=== PATIENT | male | born 1980 | race Two or more races ===

== ENCOUNTER 2024-06-26 06:29 | Emergency (ER) | payer OTHER ==
[~2024-06-26] VITALS: Ht 182.9 cm; Wt 98.4 kg
[~2024-06-26 06:29] MED LIST: NAPROXEN500 MG PO; ORPHENADRINE C100 MG PO; PERCOCET 10-321 EACH; RELAPHEN; TESSALON PERLE100 M1
[2024-06-26 08:41] LABS: HEMOGLOBIN 15.7 g/dL (13-16.00); MEAN CELL VOLUME 90.3 fL (80.0-100.00); MEAN CORPUSCULAR HEMOGLOBIN 30.8 pg (27.00-32.0); MEAN CORPUSCULAR HGB CONC 34.1 g/dl (32.0-36.0); PLATELET COUNT 163 K/uL (150-450); RED CELL DISTRIBUTION WIDTH 13.2 % (11.5-14.5)
[2024-06-26 09:20] LABS: PH,URINE 7.5 (5.0-8.0); URINE APPEARANCE Clear; URINE BILIRRUBIN Negative (NEGATIVE); URINE BLOOD Small; URINE COLOR Yellow; URINE GLUCOSE Negative (NEGATIVE); URINE KETONE Negative (NEGATIVE); URINE LEUKOCYTE Trace; URINE NITRATE Negative; URINE PROTEIN Negative (NEGATIVE)
[2024-06-26 09:26] LABS: URINE RBC 114.5 uL (0.0-20.8)
[2024-06-26 09:37] LABS: URINE BACTERIA 1.2 uL (0.0-1933); URINE EPITHELIAL CELLS 0.9 uL (0.0-38.8); URINE WBC 1.5 uL (0.0-23.2)
[2024-06-26] MEDS ORDERED: TAMSULOSIN HCL 0.4 MG CAP PO ONE (11:30)
== END 2024-06-26 12:00 | disposition home or self-care (01) ==
LOC: ER 06:31
PROVIDERS: Emergency Medicine
DX: R10.32 Left lower quadrant pain (principal); N20.1 Calculus of ureter; Z88.8 Allergy status to other drugs, medicaments and biological substances